=== PATIENT | female | born 1960 | race Caucasian/White ===

== ENCOUNTER → 2017-03-05 | Outpatient (CLI) | payer BC ==
[~2017-03-05] MED LIST: ALBU18HF INHALATION; ALPR1TAB7 PO; ASPI325T32 PO; FENO135C3 PO; FLUO20CA38 PO; HYDR-906 PO; LEVO50TA74 PO; LISI10TA2 PO; TRAM50TA2 PO
--- NOTE | 2017-03-05 15:06 | RADRPT ---
PROCEDURE: XR Right hip and pelvis. CLINICAL INDICATION: Right hip pain. Pelvic pain. Postop. TECHNIQUE: Three views. Frontal pelvis. Frontal and lateral right hip. COMPARISON: 09/30/2016. FINDINGS: There is no fracture or dislocation. The soft tissues are normal. There is a right hip total arthroplasty which appears satisfactory. There are moderate degenerative changes of the left hip with joint space narrowing and small osteoph ytes. There is no lytic or blastic lesion. The upper pelvis is not completely included on the image. IMPRESSION: 1. Satisfactory postoperative appearance of the right hip. 2. Moderate degenerative changes of the left hip. 3. No change from 09/30/2016. RPTAT: QQ .Juan Ochoa MD, MD Date Time Electronically viewed and signed by .Juan cOhoa MD, on 03/05/2017 15:06 .R/
== END | disposition home or self-care (01) ==
LOC: HKI 10:33
PROVIDERS: ATTEND Orthopaedic Surgery
DX: Z47.1 Aftercare following joint replacement surgery (principal); Z96.641 Presence of right artificial hip joint
CPT/HCPCS: 73502; G0463